=== PATIENT | female | born 1980 | race American Indian/Alaskan Native ===

== ENCOUNTER 2022-01-02 03:08 | Emergency (ER) | payer SELFPAY ==
--- NOTE | 2022-01-02 03:40 | Emergency Department Report ---
ED General Adult HPI - General Chief complaint: Syncope Stated complaint: I got drunk and I passed out Time Seen by Provider: 01/02/22 03:38 Source: patient, EMS ( EMS documentation not available at time of chart dictation ), RN notes reviewed Mode of arrival: Ambulatory Limitations: No Limitations - History of Present Illness Initial comments: The patient was evaluated in the emergency department for symptoms described in the history of present illness. He/she was evaluated in the context of the global COVID-19 pandemic, which necessitated consideration that the patient might be at risk for infection with the virus that causes COVID-19. Institu tional protocols and algorithms that pertain to the evaluation of patients at risk for COVID-19 are in a state of rapid change based on information released by regulatory bodies including the CDC and federal and state organizations. These policies and algorithms were followed during the patient's care in the emergency department. Please note that these policies, procedures and recommendations changed on a rapid basis. During the history and physical examination, I am chaperoned by nurse Venus Dominguez The patient is a 41-year-old female. She is not known to myself previously. She has a past medical history of asthma. She is not today by history. Patient presents to the department today with a complaint of losing consciousness after recreational alcohol consumption. Patient reports that she is in her usual state of health, and was consuming some tequila for recreational reasons. She denies additional drug abuse. She reports that she lost consciousness. Contrary to what is documented in nursing triage note, the patient and family members at the bedside report that the patient was in car, and was not unresponsive on her driveway. As per nursing documentation, family started CPR after the patient became unresponsive, and was given Narcan by EMS, and patient woke up. The patient currently denies headache, neck pain, chest pain, abdominal pain, shortness of breath, homicidality, suicidality. She feels like she is at her baseline. The patient reports no DVT or PE risk factors. Patient reported to other nursing team members that she was celebrating a family member and listing in the [employer]. -: Sudden Consistency: now resolved Improves with: medication Worsens with: none Associated Symptoms: denies other symptoms - Related Data Previous Rx's Medication Instructions Recorded Last Taken Type Naloxone HCl [Narcan Nasal [place]] 4 mg NS PRN PRN #1 spray 01/02/22 Unknown Rx Ondansetron [Zofran Odt] 4 mg PO Q8HR PRN #20 tab.rapdis 01/02/22 Unknown Rx Allergies Allergy/AdvReac Type Severity Reaction Status Date / Time codeine Allergy Hives Verified 01/02/22 03:46 prochlorperazine Allergy Rash Verified 01/02/22 03:47 [From Compazine] ED Review of Systems ROS: Stated complaint: UNRESPONSIVE Other details as noted in HPI Comment: All other systems reviewed and negative Cardiovascular: syncope ED Past Medical Hx - Medications Home Medications: Home Medications Medication Instructions Recorded Confirmed Last Taken Type Naloxone HCl [Narcan Nasal [place]] 4 mg NS PRN PRN #1 spray 01/02/22 Unknown Rx Ondansetron [Zofran Odt] 4 mg PO Q8HR PRN #20 tab.rapdis 01/02/22 Unknown Rx ED Physical Exam - General Limitations: No Limitations General appearance: alert, in no apparent distress - Head Head exam: Present: atraumatic, normocephalic - Eye Eye exam: Present: normal appearance, EOMI. Absent: nystagmus - ENT ENT exam: Present: normal exam, normal orophraynx, mucous membranes moist, normal external ear exam - Neck Neck exam: Present: normal inspection, full ROM. Absent: tenderness, meningismus - Respiratory Respiratory exam: Present: normal lung sounds bilaterally. Absent: respiratory distress, wheezes, rales, rhonchi, stridor, decreased breath sounds - Cardiovascular Cardiovascular Exam: Present: regular rate, normal rhythm, normal heart sounds. Absent: bradycardia, tachycardia, irregular rhythm, systolic murmur, diastolic murmur, rubs, gallop - GI/Abdominal GI/Abdominal exam: Present: soft, normal bowel sounds. Absent: distended, tenderness, guarding, rebound, rigid, pulsatile mass - Extremities Exam Extremities exam: Present: normal inspection, full ROM, normal capillary refill, other (2+ pulses noted in the bilateral upper and lower extremities. There is no palpable cord. negative Homans sign. Muscular compartments are soft. The pelvis is stable.). Absent: pedal edema, calf tenderness - Back Exam Back exam: Present: normal inspection, full ROM. Absent: tenderness, CVA tenderness (R), CVA tenderness (L), paraspinal tenderness, vertebral tenderness - Neurological Exam Neurological exam: Present: alert, oriented X3, normal gait, other (No facial droop. Tongue midline. Extraocular movements intact bilaterally. Facial sensation intact to light touch in V1, V2, V3 distribution bilaterally. 5 and a 5 strength in 4 extremities. Sensation intact to light touch in 4 extremities.). Absent: motor sensory deficit - Psychiatric Psychiatric exam: Present: normal affect, normal mood. Absent: homicidal ideation - Skin Skin exam: Present: warm, dry, intact, normal color. Absent: rash ED Course Vital Signs 01/02/22 01/02/22 01/02/22 03:08 04:06 05:13 Temperature 97.4 F L Pulse Rate 92 H Respiratory 18 20 Rate Blood Pressure 130/80 Blood Pressure [Left] O2 Sat by Pulse 97 99 Oximetry O2 Sat by Pulse 99 Oximetry [ Digit-Finger] 01/02/22 05:18 Temperature 98.6 F Pulse Rate 88 Respiratory 18 Rate Blood Pressure Blood Pressure 102/78 [Left] O2 Sat by Pulse Oximetry O2 Sat by Pulse Oximetry [ Digit-Finger] - Reevaluation(s) Reevaluation #1: 01/02/22 04:09 Differential diagnosis, including not limited to: Alcohol intoxication, orthostasis, vagal event, dehydration, electrolyte derangement, polysubstance ingestion Assessment and plan: 41-year-old female, who is not currently tachycardic, tachypneic or hypoxic, who denies DVT and pulmonary embolism risk factors, who is low risk by Wells criteria for pulmonary embolism, and PERC negative, who is low risk for major adverse cardiac event as per heart score, who reports consuming alcohol, and subsequently lost consciousness, reportedly had episode of being unresponsive, which improved with Narcan. The patient is clinically sober at this time. She is in no acute distress. She is speaking comfortably to family members. 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 As needed Narcan, as needed Zofran. Observe for 4 hours from the time of first medical contact while here in the emergency room. She is visiting from [place]. 01/02/22 05:13 Patient resting comfortably and in no acute distress. Laboratory studies reviewed and appreciated. Can follow-up with outpatient primary care for asymptomatic anemia. Care be transferred to the oncoming ER physician, to monitor for clinical sobriety, and discharge after 4 hours of observation, if no further events noted. 01/02/22 06:13 Patient is now insistent on leaving. Patient is awake, alert, oriented, sober, of sound mind, and exhibits decision-making capacity. Advised patient that we do not medically recommend discharge at this time. Advised patient that we recommend observation in the emergency room as prescribed and recommended. Patient is refusing and declining to stay. She does not have a distracting injury, and she has decision-making capacity. She is currently awake, alert, oriented. Risks of leaving, including , disability, paralysis, and loss of quality of life are discussed with the patient, who articulates understanding in her own words. Conversation witnessed by patient's family members, and nurses Tiffanie Ibarra and Leydi Rosario - Pulse Oximetry Interpretation Digit-Finger Initial Pulse Oximetry Readin O2 Sat by Pulse Oximetry: 99 Actions Taken: none ED Medical Decision Making - Lab Data Result diagrams: 01/02/22 03:48 01/02/22 03:48 Vital Signs 01/02/22 01/02/22 03:08 04:06 Temperature 97.4 F L Pulse Rate 92 H Respiratory 18 20 Rate Blood Pressure 130/80 O2 Sat by Pulse 97 99 Oximetry - EKG Data -: EKG Interpreted by Ok EKG shows normal: sinus rhythm Rate: normal - EKG Data 01/02/22 04:09 There is no prior EKG available for comparison. The EKG is interpreted at 03: 42 AM Sinus rhythm, 88 bpm. Normal axis, normal P wave axis, high left ventricular voltage, QTC 4 5 5 ms. Abnormal EKG. Not a STEMI. Critical care attestation.: If time is entered above; I have spent that time in minutes in the direct care of this critically ill patient, excluding procedure time. ED Disposition Clinical Impression: History of syncope Disposition: LEFT AGAINST MEDICAL ADVICE Is pt being admited?: No Does the pt Need Aspirin: No Condition: Undetermined Additional Instructions: As we discussed, you have left the hospital/emergency room AGAINST MEDICAL ADVICE. By leaving, you risked , disability, paralysis, permanent loss of quality of life. The ER is open 24 hours a day, 7 days a week. It never closes. Please return to the emergency room right away if and when you change your mind. If you decide not to return to the emergency room, please follow-up with the listed physician referrals as soon as possible. Recommend that the patient not drive or operate motor vehicles for the next 6 months, or until cleared to do so by an outpatient primary care doctor. Recommend follow-up with an outpatient primary care doctor or specialist such as neurology or cardiology as soon as possible . Recommend that patient avoid consumption of alcohol, tobacco, smoke products, marijuana, and recreational drugs, if consuming or being exposed. Use the Narcan medication as needed/directed, and Zofran medication as needed and directed. Take a multivitamin [id number] on a daily basis. Please return to the emergency room right away with new pain, worsened pain, migration of pain, projectile vomiting, change in mental status, confusion, inability tolerate liquid feeds, new, worsened or different symptoms not present on the initial emergency room evaluation Prescriptions: Naloxone HCl [Narcan Nasal [place]] 4 mg NS PRN PRN #1 spray PRN Reason: Opioid Reversal Ondansetron [Zofran Odt] 4 mg PO Q8HR PRN #20 tab.rapdis PRN Reason: Nausea Referrals: MEME WILLARD MD [Primary Care Provider] - DAVID ABDI MD [Staff Physician] - GRETCHEN WOLF MD [Staff Physician] - MAYE Forms: Work/School Release Form(ED)
[2022-01-02] MEDS ORDERED: NALOXONE 0.4 MG/1 ML INJ IV PRN (03:50)
[2022-01-02 04:16] LABS: Hematocrit 28.4 % (30.3-42.9); Hemoglobin 9.3 gm/dl (10.1-14.3)
[2022-01-02 04:27] LABS: Bacteria,Urine 1+ /HPF (Negative); Hyaline Casts,Urine 4 /LPF; Mucus,Urine FEW /HPF; RBC,Urine < 1.0 /HPF (0.0-6.0)
[2022-01-02 04:28] LABS: Alanine Aminotransferase 17 units/L (7-56); Albumin 4.7 g/dL (3.9-5); BUN/Creatinine Ratio 14; Blood Urea Nitrogen 13 mg/dL (7-17); Calcium 8.9 mg/dL (8.4-10.2); Hemolysis Index 0
[2022-01-02 04:28] LABS: Color,Urine Yellow (Yellow)
[2022-01-02 04:35] LABS: Amphetamine Screen,Urine PRESUMPTIVE NEGATIVE; Benzodiazepines Screen,Urine PRESUMPTIVE NEGATIVE; Cannabinoid Screen,Urine PRESUMPTIVE NEGATIVE; Cocaine Screen,Urine PRESUMPTIVE NEGATIVE; Methadone Screen,Urine PRESUMPTIVE NEGATIVE; Opiate Screen,Urine PRESUMPTIVE NEGATIVE
[2022-01-02 05:19] VITALS: BP 102/78
--- NOTE | 2022-01-02 09:22 | Electrocardiograph Report ---
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
== END 2022-01-02 06:18 | disposition left against medical advice (07) ==
LOC: ED 03:08
DX: R55 Syncope and collapse (principal); Z79.899 Other long term (current) drug therapy; Z88.5 Allergy status to narcotic agent; Z88.8 Allergy status to other drugs, medicaments and biological substances
CPT/HCPCS: 36415; 80053; 80307; 80320; 81001; 82550; 83735; 84484; 84702; 85014; 85018; 85049; 93005; 99284; G0480